=== PATIENT | female | born 1935 | race Caucasian/White ===

== ENCOUNTER 2017-08-02 11:51 | Outpatient (CLI) | payer MEDICARE ==
[2017-08-02 13:34] LABS: Hemoglobin 14.1 g/dL (12.0-16.0); Mean Corpuscular HGB CONC 33.7 g/dL (32.0-36.0); Mean Corpuscular Hemoglobin 32.9 pg (27.0-31.0); Mean Corpuscular Volume 97.6 fl (81.0-99.0); Mean Platelet Volume 6.1 fL (7.4-10.4); Platelet Count 279 thou/uL (130-400); RBC Distribution Width 11.9 % (11.5-14.5); Red Blood Cell (RBC) Count 4.29 mill/uL (4.20-5.40); White Blood Cell (WBC) Count 6.3 thou/uL (4.8-10.8)
== END 2017-08-02 11:52 | disposition home or self-care (01) ==
LOC: LABBT 11:51
PROVIDERS: ATTEND Obstetrics & Gynecology
DX: Z01.812 Encounter for preprocedural laboratory examination (principal); N81.4 Uterovaginal prolapse, unspecified
CPT/HCPCS: 85027; 86850; 86900; 86901

== ENCOUNTER 2017-08-03 05:53 | Observation (INO) | payer MEDICARE ==
--- NOTE | 2017-08-02 15:22 | HP ---
HISTORY OF PRESENT ILLNESS: Ms. Luis is an 81-year-old white female who has had a history of pelvi c prolapse and has worn a pessary for past one and a half years. She is using Estring for vaginal es trogen and has also had overactive bladder and some stress UTI, but not that incapacitating, is other cordon in good health and is considering now surgical repair due to feeling that she is tired of using the pessary device. PAST SURGICAL HISTORY: Previous cholecystectomy. ALLERGIES: She has allergies to SULFA DRUGS. CURRENT MEDICATIONS: Multivitamin, Citracal, aspirin tablet daily and has been off of this for over a week now prior to surgery. SOCIAL HISTORY: Non-smoker, minimal alcohol use. She is . FAMILY HISTORY: Essential hypertension, hyperlipidemia, and diabetes. REVIEW OF SYSTEMS: As per HPI. PHYSICAL EXAMINATION: VITAL SIGNS: Her blood pressure is 120/84, pulse 79, respirations 18, height 63 inches, weight 135 p ounds. BMI 23.9. HEENT: Within normal limits. CHEST: Clear to auscultation. HEART: Regular rate and rhythm. S1, S2 heart sounds, no murmurs, rubs or gallops. ABDOMEN: Soft, nontender, nondistended. No palpable masses. PELVIC: Vulva and vagina showed no lesions. There was a grade 2 cystocele and grade 3 rectocele. N o abnormal vaginal discharge was observed. Cervix had no lesions. Uterus had prolapse grade 2-3 wit h hypermobile urethra, has urodynamics in 6 mL, positive leak with Valsalva, some mild detruso r contractions, normal cystoscopy. Uterine adnexa were nontender with no masses. ASSESSMENT: This is an 81-year-old white female with grade 2 cystocele, grade 2-3 uterine prolapse w ith hypermobile urethra and a grade 3 rectocele. PLAN: Proceed with robotic TLH BSO uterosacral vaginal vault suspension, Solyx TVT and anterior and posterior repair. Post-procedure cystoscopy also performed intraoperatively. Risks and benefits of procedure have been discussed in detail. She is set for surgery on 08/03/2017.
[2017-08-03] MEDS ORDERED: CEFAZOLIN/Water 2 GM/20 ML SYRINGE ONE (06:10)
[2017-08-03] MEDS ORDERED: Fentanyl 100 MCG/2 ML VIAL ONE (06:44)
[2017-08-03] MEDS ORDERED: Bupivacaine PF 0.5% 30 ML VIAL ONE (06:55)
[2017-08-03] MEDS ORDERED: Lidocaine 2% w/Epinephrine 1:200K 20 ML VIAL ONE (06:55)
[2017-08-03] MEDS ORDERED: Lidocaine 1% w/Epinephrine 1:200K 30 ML VIAL ONE (06:56)
[2017-08-03] MEDS ORDERED: Promethazine HCl 25 MG/ML VIAL IM PRN (10:24)
[2017-08-03] MEDS ORDERED: Acetaminophen 325 MG TAB PO PRN (10:24)
[2017-08-03] MEDS ORDERED: Simethicone Chewable 80 MG TAB PO PRN (10:24)
[2017-08-03] MEDS ORDERED: diphenhydrAMINE 25 MG CAP PO PRN (10:24)
[2017-08-03] MEDS ORDERED: Ondansetron HCl/PF 4 MG/2 ML Vial IVP PRN (10:24)
[2017-08-03] MEDS ORDERED: traMADol HCl 50 MG TAB PO PRN (10:24)
--- NOTE | 2017-08-03 12:59 | OP ---
DATE OF PROCEDURE: 08/03/2017 PREOPERATIVE DIAGNOSES: An 81-year-old white female with grade 3 uterine prolapse, grade 2 cystocele and grade 3 rectocele and genuine stress incontinence, desirous of surgical repair. POSTOPERATIVE DIAGNOSES: An 81-year-old white female with grade 3 uterine prolapse, grade 2 cystocel e and grade 3 rectocele and genuine stress incontinence, desirous of surgical repair. PROCEDURE PERFORMED: 1. Robotic TLH BSO. 2. Uterosacral vaginal vault suspension. 3. Solyx TVT with cystoscopy. 4. Posterior repair. SURGEON: Earnestine Vivar M.D. BOWLING FLOOR DESK CLERK: Maninder Crisostomo D.O.. ANESTHESIA: General endotracheal. ESTIMATED BLOOD LOSS: 50 mL. COMPLICATIONS: None. COUNTS: Correct x2. ANTIBIOTICS: Two grams Ancef environmental engineering professor to the OR. FINDINGS: 1. Normal appearing postmenopausal uterus, tubes and ovaries. 2. Cystoscopic exam of the bladder post-procedure showed no evidence of mucosal injury, watertight t o fluid distention and no leakage noted and bilateral ureteral orifices showed efflux of urine bilate rally. DISPOSITION: To the recovery room stable. DESCRIPTION OF OPERATIVE PROCEDURE: The patient previously received informed consent in regards to s vania. She was taken back to the operating room where she received a general endotracheal anestheti c agent without complications. She was placed in dorsal lithotomy position with the use of Andrew sti rrups, prepped and draped in usual sterile fashion. At this time, a side-arm speculum was placed in the vagina. Anterior lip of the cervix grasped with a single-tooth tenaculum. The uterus was sounde d with the uterine sound and the cervix was sequentially dilated to allow for placement of the OLAMIDE u terine manipulator. A size 6 cm OLAMIDE with a 3.5 cervical cup was placed. The tenaculum and speculum were removed. Castillo catheter had been placed during the prep process. Next, attention was then tur saige to the abdomen where perspective trocar sites were infiltrated with 0.5% Marcaine with epinephrin e and 10 mm infraumbilical incision was made. Veress needle was placed into the peritoneal cavity an d patient pressure was noted to be less than 5 mm and abdomen was insufflated to a patient pressure o f 15, approximately 4 liters of carbon dioxide gas. A Veress needle was removed and a size 12 mm tro car was placed. The laparoscope was introduced through the trocar sleeve. Proper entry was confirme d. Then additional bilateral lower quadrant 8 mm robotic trocars were placed along with the right up per quadrant 11 mm insurance account assistant port. The patient was placed in Trendelenburg position and then the chasity ot was docked in usual fashion. I then proceeded to carry out the surgery from the surgical console while my assistants remained at the bedside. The uterus was elevated. This allowed for tracing of t he uterosacral ligaments bilaterally. The ureter courses were noted to be in the pelvic sidewall wel l away from the uterosacral region that would be a window that would be created for later support of the uterosacral vaginal vault suspension. The peritoneum just lateral to the mid portion of the left uterosacral ligament was elevated, was incised and the retroperitoneal peritoneum was incised develo ping a window and freeing any tension on the ureter on the left pelvic sidewall. This was repeated i n likewise fashion on the right uterosacral ligament. Then, we proceeded to carry out the hysterecto my. The left IP ligament was isolated and grasped, the fimbria of the tube was grasped by my assista nt. A bipolar fenestrated cautery was then utilized to coagulate the left infundibulopelvic ligament , it was transected with monopolar scissors. Serial bites of coagulation of the broad ligament, hugg ing close uterine specimen was carried out to the left round ligament was reached. It was coagulated and transected. Anterior leaf of broad ligament was entered and the vesicouterine peritoneum was di ssected in a layering technique dissecting the bladder atraumatically past the cervical vaginal angle , which was delineated by the cervical cup indention. The left uterine vessels were skeletonized in the coagulated internal cervical os region. This was repeated in likewise fashion on the right side of the uterus. Again, the right infundibulopelvic ligament was coagulated and transected with monopo lar scissors and then serial coagulation and transection of the broad ligament to the right round lig ament was carried out. This was coagulated and transected and again the anterior leaf of the broad l igament was entered and a layering technique of the vesicouterine peritoneum was carried out dissecti ng the bladder atraumatically past the cervical vaginal cup. The right uterine vessels were skeleton ized and they were coagulated internal cervical os region. The anterior colpotomy was then created s tarting from the 12 to 3 and 12 to 9 o'clock position and then completed from 6 to 3 and 6 to 9 o'reina ck. The specimen of the uterus was delivered into the vaginal vault. Any areas of bleeding on the v aginal cuff were coagulated with bipolar fenestrated cautery. The monopolar scissors was substituted with an [place] needle bus driver supervisor. Stratafix suture was brought into the field by my insurance account assistant and the va ginal cuff was closed in a double layer closure starting from the right-angle in full thickness closu re left angle back towards the midline. The Stratafix suture was then cut and the needle was deliver ed. The vaginal cuff was then elevated by my insurance account assistant with a sponge stick vaginally, then we placed a #1 0 Ethibond sutures starting at the right angle, full thickness, reefing some of the posterior cul-de -sac peritoneum and then anchoring this into the right uterosacral ligament defect window that I had previously created. This was then cinched down and tied. Another additional suture of 0 Ethibond wa s then again placed through full thickness on the left vaginal angle reefing some of the posterior pe ritoneum and the posterior cul-de-sac and then anchoring through the previous made window and then ty ing the sutures suspending the vaginal cuff. An additional 0 Ethibond suture was then placed startin g in the midline of the vaginal cuff and then reefing the posterior peritoneum in a [place] posteri or culdoplasty technique and then anchoring and plicating the uterosacrals in the midline. All the s utures were removed. The remaining sutures were removed along with all the needles. Next, attention was then turned towards the vaginal portion of the surgery. The robot was undocked. The pelvis was noted to be hemostatic and the trocar sleeves were removed. The fascial stitch of 0 Vicryl was placed in the infraumbilical incision, closing the fascial defect. The additional trocar sites were closed with subcuticular 4-0 Monocryl and Dermabond. Attention was then turned to the vag inal portion of the case. The patient's legs were placed in a more dorsal lithotomy position for vag inal surgery. The anterior cystocele appeared to be well reduced from the vaginal vault suspension a nd we allowed for the anesthesiologist to give some Valsalvas. There was no significant cystocele of the body of the uterus noted. Therefore, the anterior repair was not carried out. The mini sling S olyx TVT was then carried out, the mid portion of the urethra with identified by palpation of the Fol ey bulb and the mucosa was grasped superiorly and inferiorly to this with Allis clamps. This was inf iltrated with 0.5% Marcaine with epinephrine and then a 1.5 cm vaginal mucosal incision was made in t he mid urethral region. Metzenbaum scissors were then utilized to dissect under the vaginal mucosa s ubmucosally towards the junction of the inferior pubic ramus and symphysis pubis area puncturing into the space of Retzius. The Solyx mesh device along with the trocars then was placed initially on the patient's left side, anchoring in the previously dilated tunnel going to underneath the symphysis pu bis and inferior pubic rami muscle area, securing the mesh and then anchoring on the patient's right side in similar fashion. A snug fit was noted with the mesh tape underneath the mid urethra. Hemost asis of the vaginal mucosa was carried out with fulcva-[id number] sutures of 2-0 Vicryl. Cystoscopy was then performed with a 70 degree scope. The Castillo catheter was removed. The bladder w as distended with the cystoscope. There was no evidence of any mucosal lesions, it was watertight an d bilateral ureteral orifices were identified with efflux of urine seen. Both right and left ureter orifices. Cystoscope was then removed. The Castillo bag was then reattached. Attention was then turned to the posterior repair. Two Allis clamps were placed at both the 4 and 8 o'clock position. The posterior vaginal mucosa was infiltrated with 0.5% Marcaine with epinephrine u p to the vaginal cuff line. The vaginal mucosa was incised in the midline and the edges of the mucos a were grasped with Allis clamps. We dissected towards the vaginal cuff. The endopelvic fascial def ect was then dissected, the rectocele was dissected and reduced both sharply and bluntly. A tag of s uture of 2-0 Vicryl was placed in the upper apex of the vaginal mucosa for marking a landscape for la ter closure. 0 Vicryl sutures were then utilized to start in the most proximal portion of the posterior endopelvic repair by grasping the endopelvic fascial suture and plicating it on the patient's left side. The r ight side [id number] suture fashion. Serial closures with 0 Vicryl suture carried out until the rectocele was closed in its entirety. The vaginal mucosa was then closed with interrupted 2-0 Vicry l sutures incorporating some of the endopelvic fascia to rid the space. Once this was completed , a moistened Kerlix vaginal packing was placed and a rectal exam was performed. There was no eviden ce of any inadvertent suture placement through the rectal mucosa. The patient was then awakened from anesthesia and transferred to recovery in stable condition.
[2017-08-03 14:42] VITALS: BMI 152.0
[2017-08-03] MEDS ORDERED: Glycopyrrolate 0.2 MG/ML 5 ML SYRINGE ONE (16:28)
[2017-08-03] MEDS ORDERED: Ondansetron HCl/PF 4 MG/2 ML Vial ONE (16:28)
[2017-08-03] MEDS ORDERED: Lidocaine 1% PF 5 ML VIAL ONE (16:28)
[2017-08-03] MEDS ORDERED: Ketorolac Tromethamine 30 MG/ML VIAL ONE (16:28)
[2017-08-03] MEDS ORDERED: Propofol 200 MG/20 ML VIAL ONE (16:28)
[2017-08-03] MEDS ORDERED: Dexamethasone 20 MG/5 ML VIAL ONE (16:28)
[2017-08-03] MEDS: Lactated Ringer's 1,000 ML IV SCH ×2 (19:40→22:31)
--- NOTE | 2017-08-03 21:12 | EKG ---
Test Reason : PREOP Blood Pressure : / mmHG Vent. Rate : 055 BPM Atrial Rate : 055 BPM P-R Int : 186 ms QRS Dur : 082 ms QT Int : 424 ms P-R-T Axes : 072 -26 059 degrees QTc Int : 405 ms Sinus bradycardia Otherwise normal ECG No previous ECGs available Confirmed by EMY WESTBROOK ([id number]) on 08/03/2017 9:12:09 PM Referred By: DEDRICK Confirmed By:EMY WESTBROOK
[2017-08-04] MEDS: Lactated Ringer's 1,000 ML IV SCH (02:45)
[2017-08-04] MEDS: Ibuprofen 800 MG TAB PO SCH ×2 (02:49→04:19)
[2017-08-04 05:53] LABS: Hemoglobin 11.3 g/dL (12.0-16.0); Mean Corpuscular HGB CONC 33.6 g/dL (32.0-36.0); Mean Corpuscular Hemoglobin 32.9 pg (27.0-31.0); Mean Corpuscular Volume 98.1 fl (81.0-99.0); Platelet Count 216 thou/uL (130-400); RBC Distribution Width 11.8 % (11.5-14.5); Red Blood Cell (RBC) Count 3.43 mill/uL (4.20-5.40); White Blood Cell (WBC) Count 7.7 thou/uL (4.8-10.8)
--- NOTE | 2017-08-04 07:58 | PDOC.EVN ---
Event Note - Event Note Event Note: S:Tolerating diet. Adequate pain control. O:AFVSS HCt 33.7 % ABD soft non tender. non distended A:post op day 1 from robotic TLH/BSO, Uterosacral vaginal vault suspension, solyx tvt, posterior repair. Doing well. Voiding trials. Advance diet and activity. If continues to do well, d/c later today...F/u 2 and 6 weeks...
[2017-08-04] MEDS ORDERED: FLU VACC TS2017-18 (>65YR) 0.5 ML SYRINGE IM ONE (09:00)
[2017-08-04] MEDS ORDERED: Prevnar 13-Val Conj/PF 0.5 ML SYRINGE IM ONE (09:00)
[2017-08-04 14:23] VITALS: BP 126/64; TEMP 98.2
--- NOTE | 2017-08-04 23:06 | DIS ---
DATE OF ADMISSION: 08/03/2017. DATE OF DISCHARGE: 08/04/2017. DIAGNOSES: Symptomatic pelvic prolapse with grade 2 cystocele, genuine stress incontinence, grade 3 uterine prolapse, and grade 3 rectocele. PROCEDURE PERFORMED: Robotic TLH BSO with uterosacral vaginal vault suspension, followed by Solyx TV T with cystoscopy and posterior repair. SUMMARY OF HOSPITAL COURSE: Ms. Luis is an 81-year-old white female with symptomatic pelvic prolap se who previously used pessary, but desired surgical repair. She underwent uncomplicated robotic tot al laparoscopic hysterectomy and BSO with uterosacral vaginal vault suspension and Solyx TVT with pos terior repair on 08/03/2017. Postoperatively, the patient did well. Her vital signs remained stable . She was afebrile throughout. Her postoperative hematocrit was 33.7%. She is tolerating regular d iet, and ambulating and voiding without difficulty. On postop day #1, her voids were over 200 to 300 with postvoid residuals of less than 100 x2. She had adequate pain control on minimal analgesic age nt of ibuprofen. She was discharged home and will have scheduled followup in 2 and 6 weeks. She marilyn l use [id number] Tylenol or Motrin as needed; and daily stool softener, Colace, [id number]-[id number]-vzyada r was recommended. Pathology of the uterus and cervix showed cervix to have benign findings, endomet rium was atrophic with no abnormalities noted, uterine weight was 36 grams, both right and left ovari es were normal in appearance, postmenopausal state.
== END 2017-08-04 14:20 | disposition home or self-care (01) ==
LOC: SDC 05:53 → 3SE 10:23 → EDSTATUS 12:30
PROVIDERS: ADMIT Obstetrics & Gynecology; ATTEND Obstetrics & Gynecology
PROC: 0UT94ZZ Resection of Uterus, Percutaneous Endoscopic Approach (ICD-10-PCS; principal; 2017-08-03)
PROC: 0UT24ZZ Resection of Bilateral Ovaries, Percutaneous Endoscopic Approach (ICD-10-PCS; 2017-08-03)
PROC: 0UT74ZZ Resection of Bilateral Fallopian Tubes, Percutaneous Endoscopic Approach (ICD-10-PCS; 2017-08-03)
DX: N81.3 Complete uterovaginal prolapse (principal); N88.8 Other specified noninflammatory disorders of cervix uteri; N83.312 Acquired atrophy of left ovary; N83.311 Acquired atrophy of right ovary; N83.8 Other noninflammatory disorders of ovary, fallopian tube and broad ligament; N39.3 Stress incontinence (female) (male); I10 Essential (primary) hypertension; E11.9 Type 2 diabetes mellitus without complications; E78.5 Hyperlipidemia, unspecified; Z88.2 Allergy status to sulfonamides; Z90.49 Acquired absence of other specified parts of digestive tract; Z98.890 Other specified postprocedural states
CPT/HCPCS: 51798; 57260; 57425; 58571; 85027 ×2; 86850; 86900; 86901; 88305; 93005; 96360; 96361 ×2; C1781; G0008; G0378; Q2036; 36415; 90471; 90682; 93010; J1100; J1885; J2001; J2405; J2704; J3010; S0020